=== PATIENT | female | born 1975 | race Caucasian/White ===

== ENCOUNTER 2020-03-13 22:47 | Emergency (ER) | payer OTHER ==
[~2020-03-13] VITALS: Ht 162.6 cm; Wt 113.0 kg
[~2020-03-13 22:47] MED LIST: ACETAMINOPHEN-1 EAC1 PO; AUGMENTIN 500-1 EACH PO; BACTRIM DS TAB1 EACH PO; EXCEDRIN CAPLE1 EACH PO; FLEXERIL PO; IBUPROFEN 800800 MG PO; MEDROLDOSEPACK PO; MINOCIN100 MG PO; OMEGA-31000 MG PO; PERCOCET 7.5-31 EACH PO; PREDNISOLONE; TRAMADOL 50 MG50 MG PO; ZANTAC 150MG T150 MG PO
[2020-03-13] MEDS ORDERED: TIROSINT100 MCG PO (23:03)
[2020-03-13] MEDS ORDERED: PROTONIX40 M2 PO (23:03)
[2020-03-13] MEDS ORDERED: REVLIMID5 MG PO (23:04)
[2020-03-13] MEDS ORDERED: ASPIRIN PO (23:05)
[2020-03-13] MEDS ORDERED: MAGNESIUM400 MG PO (23:07)
[2020-03-13] MEDS ORDERED: CALCIUM + D3 E1 EACH PO (23:08)
[2020-03-13] MEDS ORDERED: COMPAZINE10 M2 PO (23:09)
[2020-03-13] MEDS ORDERED: ROBAXIN 750 MG750 MG PO (23:10)
[2020-03-13] MEDS ORDERED: CURCUMIN1 GM PO (23:10)
[2020-03-13] MEDS ORDERED: NEURONTIN 400M400 M2 PO (23:11)
[2020-03-13] MEDS ORDERED: FLEXERIL PO (23:41)
[2020-03-13] MEDS ORDERED: NORCO 5-325 TA1 EAC1 PO (23:41)
[2020-03-14 00:02] VITALS: BP 172/85
== END 2020-03-14 00:08 | disposition home or self-care (01) ==
LOC: M.ERS 22:47
DX: S29.012A Strain of muscle and tendon of back wall of thorax, initial encounter (principal); F17.210 Nicotine dependence, cigarettes, uncomplicated; Z96.642 Presence of left artificial hip joint; Z88.1 Allergy status to other antibiotic agents; X58.XXXA Exposure to other specified factors, initial encounter; Y93.89 Activity, other specified; Y92.89 Other specified places as the place of occurrence of the external cause; Y99.8 Other external cause status

== ENCOUNTER 2020-09-20 05:57 | Emergency (ER) | payer OTHER ==
[~2020-09-20] VITALS: Ht 162.6 cm; Wt 108.4 kg
[~2020-09-20 05:57] MED LIST changes: +ASPIRIN PO; +CALCIUM + D3 E1 EACH PO; +COMPAZINE10 M2 PO; +CURCUMIN1 GM PO; +MAGNESIUM400 MG PO; +NEURONTIN 400M400 M2 PO; +NORCO 5-325 TA1 EAC1 PO; +PROTONIX40 M2 PO; +REVLIMID5 MG PO; +ROBAXIN 750 MG750 MG PO; +TIROSINT100 MCG PO
[2020-09-20] MEDS ORDERED: ATORVASTATIN (06:19)
[2020-09-20] MEDS ORDERED: GLUMETZA1000 (06:20)
[2020-09-20] MEDS ORDERED: PRINIVIL10 MG (06:20)
[2020-09-20 07:02] LABS: HEMATOCRIT 39.5 % (37.0-47.0); HEMOGLOBIN 13.1 gm/dL (12.0-15.0); MCHC 33.2 g/dL (28.0-37.0); MCV 90.4 fL (80.0-100.0); RBC 4.37 mil/uL (4.20-5.00); RDW-CV 13.4 % (10.5-14.5); WBC 4.9 thou/uL (4.0-11.0)
[2020-09-20 07:23] LABS: ALBUMIN 3.2 g/dL (3.4-5.0); CALCIUM 8.8 mg/dL (8.5-10.1); CREATININE 0.8 mg/dL (0.6-1.3); TOTAL BILIRUBIN 0.4 mg/dL (<0.1-1.0)
[2020-09-20] MEDS ORDERED: NORCO 5-325 TA1 EAC2 PO (07:52)
[2020-09-20 08:08] VITALS: BP 130/72
--- NOTE | 2020-09-20 11:35 | EKG ---
[place] [address] ELECTROCARDIOGRAM REPORT Name: LORY ROWLANDCY Hilton Room: [facility]#: [id number] Admission: 09/20/20 Attend Phys: Discharge: 09/20/20 Date of : 73 Date of Service: 09/20/20 0643 Report #: [id number] THIS REPORT FOR: //name// [facility] ED Test Date: 2020-09-20 Test Time: 06:43:27 Pat Name: JESSICA ROWLAND Department: Room: Gender: F Sales Service Executive: MARGARITO : 1975 Requested By: Den Morocho Order Number: [id number] MD: Arsh Prieto Measurements Intervals [place] Rate: 72 P: -7 RI: 146 QRS: 19 QRSD: 93 T: 45 QT: 416 QTc: 456 Interpretive Statements Sinus rhythm Anterolateral infarct, old Compared to ECG 04/23/2010 16:03:17 Myocardial infarct finding now present Electronically Signed On 09-20-2020 11:35:43 [employer] by Arsh Prieto [email or web address] <ELECTRONICALLY SIGNED> By: Arsh Prieto MD, LOCATED WITHIN [facility] 09/20/20 1135 [id number] Arsh Prieto MD, LOCATED [facility]IN [facility] /EPI
== END 2020-09-20 08:08 | disposition home or self-care (01) ==
LOC: M.ERS 05:57
PROVIDERS: Emergency Medicine Emergency Medical Services
DX: M25.512 Pain in left shoulder (principal); F17.210 Nicotine dependence, cigarettes, uncomplicated; Z88.1 Allergy status to other antibiotic agents; Z96.642 Presence of left artificial hip joint